=== PATIENT | female | born 1950 | race American Indian/Alaskan Native ===

== ENCOUNTER 2022-06-01 09:29 | Emergency (ER) | payer MEDICARE ==
--- NOTE | 2022-06-01 13:34 | Emergency Department Report ---
ED Extremity Problem HPI - General Chief complaint: Extremity Injury, Lower Stated complaint: LEFT LEG PAIN Source: patient Mode of arrival: Ambulatory Limitations: No Limitations - History of Present Illness Initial comments: 72-year-old female presents to the ED with left leg pain. She states that she normally goes to [facility] but for the last week she been having left leg pain and unable to see her primary care doctor at [place]. Patient states that she knows when she is walking up and down the stairs she has a buckling in her knee. Patient states over the last 3 days she noticed that pain has run down to her calf muscle . Patient states that her sister of a DVT and she came in to have an ultrasound to rule out a DVT. Patient has no obvious edema swelling trauma noted to the left leg. Patient is ambulatory. He denies any shortness of breath chest pain or any discomfort at present time. She states that her leg do not hurt at present time but she cannot sleep at night wondering that she may have a DVT. Patient is alert and oriented x3. No acute distress noted. MD Complaint: extremity pain Severity scale (0 -10): 0 - Related Data Previous Rx's Medication Instructions Recorded Last Taken Type Meloxicam [Mobic] 7.5 mg PO QDAY 15 Days #30 tablet 06/01/22 Unknown Rx Allergies Allergy/AdvReac Type Severity Reaction Status Date / Time No Known Allergies Allergy Unverified 06/01/22 09:44 ED Review of Systems ROS: Stated complaint: LEFT LEG PAIN Other details as noted in HPI Constitutional: denies: chills, fever Eyes: denies: eye pain, eye discharge, vision change ENT: denies: ear pain, throat pain Respiratory: denies: cough, shortness of breath, wheezing Cardiovascular: denies: chest pain, palpitations Endocrine: no symptoms reported Gastrointestinal: denies: abdominal pain, nausea, diarrhea Genitourinary: denies: urgency, dysuria, discharge Musculoskeletal: denies: back pain, joint swelling, arthralgia Skin: denies: rash, lesions Neurological: denies: headache, weakness, paresthesias Psychiatric: denies: anxiety, depression Hematological/Lymphatic: denies: easy bleeding, easy bruising ED Past Medical Hx - Medications Home Medications: Home Medications Medication Instructions Recorded Confirmed Last Taken Type Meloxicam [Mobic] 7.5 mg PO QDAY 15 Days #30 tablet 06/01/22 Unknown Rx ED Physical Exam - General Limitations: No Limitations General appearance: alert, in no apparent distress - Head Head exam: Present: atraumatic, normocephalic - Eye Eye exam: Present: normal appearance - ENT ENT exam: Present: mucous membranes moist - Neck Neck exam: Present: normal inspection - Respiratory Respiratory exam: Present: normal lung sounds bilaterally. Absent: respiratory distress - Cardiovascular Cardiovascular Exam: Present: regular rate, normal rhythm. Absent: systolic murmur, diastolic murmur, rubs, gallop - GI/Abdominal GI/Abdominal exam: Present: soft, normal bowel sounds - Extremities Exam Extremities exam: Present: normal inspection - Back Exam Back exam: Present: normal inspection - Neurological Exam Neurological exam: Present: alert, oriented X3 - Psychiatric Psychiatric exam: Present: normal affect, normal mood - Skin Skin exam: Present: warm, dry, intact, normal color. Absent: rash ED Course Vital Signs 06/01/22 06/01/22 09:40 14:49 Temperature 98.7 F 98.3 F Pulse Rate 90 85 Respiratory 14 16 Rate Blood Pressure 138/76 132/72 [Right] O2 Sat by Pulse 100 100 Oximetry ED Medical Decision Making - Radiology Data [facility] [address] [place] [address] Vascular Lab Report Signed Patient: ROLDAN COE MR#: [id number] : 1950 Acct:[id number] Age/Sex: 72 / F ADM Date: 06/01/22 Loc: ED Attending Dr: Ordering Physician: MIKE OLIVAS Date of Service: 06/01/22 Procedure(s): VL venous duplex LE LT Accession Number(s): [id number] cc: MIKE OLIVAS DUPLEX DOPPLER LOWER EXTREMITY VEINS, LEFT INDICATION / CLINICAL INFORMATION: left pain. TECHNIQUE: Duplex doppler imaging was performed through the veins of the left lower extremity using venous compression and other maneuvers. COMPARISON: None available. FINDINGS: LEFT COMMON FEMORAL VEIN: Negative. LEFT FEMORAL VEIN: Negative. LEFT POPLITEAL VEIN: Negative. LEFT CALF VEINS: Negative. ADDITIONAL FINDINGS: None. IMPRESSION: 1. No sonographic evidence for DVT in the left lower extremity. Zamudio cyst measures 1.7 x 1.1 cm Signer Name: Nomi Murrieta MD Signed: 06/01/2022 2:15 PM Workstation Name: [id number] Transcribed By: CW Dictated By: CRISTIAN MURRIETA MD Electronically Authenticated By: CRISTIAN MURRIETA MD Signed Date/Time: 06/01/221414 DD/ 13 TD/TT: - Medical Decision Making 72-year-old female presents to the ED with left leg pain. She states that she normally goes to [facility] but for the last week she been having left leg pain and unable to see her primary care doctor at [place]. Patient states that she knows when she is walking up and down the stairs she has a buckling in her knee. Patient states over the last 3 days she noticed that pain has run down to her calf muscle . Patient states that her sister of a DVT and she came in to have an ultrasound to rule out a DVT. Patient has no obvious edema swelling trauma noted to the left leg. Patient is ambulatory. He denies any shortness of breath chest pain or any discomfort at present time. She states that her leg do not hurt at present time but she cannot sleep at night wondering that she may have a DVT. Patient is alert and oriented x3. No acute distress noted. Physical examination is unremarkable Rechecked the patient is resting quietly , comfortable and feeling better. I discussed the results of diagnostic study, my clinical impression and the plan for further treatment with the patient. Patient agrees with plan and discharge at this present time. All question addressed. I have given the patient instruction regarding a diagnosis ,expectation ,follow- up and return precaution. I explained to the patient that emergent condition may arise and to return to the ED for new worsen and any new persisting condition. I have explained the importance of following up with the primary care physician or referral physician listed below has instructed. The patient verbalized understanding of discharge instruction. Critical care attestation.: If time is entered above; I have spent that time in minutes in the direct care of this critically ill patient, excluding procedure time. ED Disposition Clinical Impression: Zamudio cyst Qualifiers: Laterality: left Qualified Code(s): M71.22 - Synovial cyst of popliteal space [Zamudio], left knee Disposition: HOME / SELF CARE / HOMELESS Is pt being admited?: No Does the pt Need Aspirin: No Condition: Stable Instructions: Zamudio Cyst Additional Instructions: Take medication as prescribed return to ed for any worsen symptom Prescriptions: Meloxicam [Mobic] 7.5 mg PO QDAY 15 Days #30 tablet Referrals: PRIMARY CARE, [Primary Care Provider] - 3-5 Days [facility] [Outside] - 3-5 Days Time of Disposition: 14:28
--- NOTE | 2022-06-01 14:20 | Vascular Lab Report ---
DUPLEX DOPPLER LOWER EXTREMITY VEINS, LEFT INDICATION / CLINICAL INFORMATION: left pain. TECHNIQUE: Duplex doppler imaging was performed through the veins of the left lower extremity using venous compr ession and other maneuvers. COMPARISON: None available. FINDINGS: LEFT COMMON FEMORAL VEIN: Negative. LEFT FEMORAL VEIN: Negative. LEFT POPLITEAL VEIN: Negative. LEFT CALF VEINS: Negative. ADDITIONAL FINDINGS: None. IMPRESSION: 1. No sonographic evidence for DVT in the left lower extremity. Zamudio cyst measures 1.7 x 1.1 cm Signer Name: Nomi Murrieta MD Signed: 06/01/2022 2:15 PM Workstation Name: [id number]
[2022-06-01 14:50] VITALS: BP 132/72
== END 2022-06-01 14:49 | disposition home or self-care (01) ==
LOC: ED 09:29
DX: M71.22 Synovial cyst of popliteal space [Baker], left knee (principal)
CPT/HCPCS: 99283